=== PATIENT | male | born 1965 | race Two or more races ===

== ENCOUNTER → 2020-01-10 | Emergency (ER) | payer MEDICAID, OTHER ==
[~2020-01-10] VITALS: Ht 172.7 cm; Wt 93.0 kg
[~2020-01-10] MED LIST: FOLIC ACID 1 MG, MULTIPLE VITAMIN 10 ML, MAGNESIUM SULF SDV 50% 8 MEQ, THIAMINE INJ 100... INJ ONE; NALOXONE HCL 1MG/ML 2ML SYRINGE IV ONE; NALOXONE HCL 1MG/ML 2ML SYRINGE ONE; ONDANSETRON HCL 4 MG/2 ML VIAL IV ONE
[2020-01-10 20:13] LABS: Basophils # (auto) 0.1 10 ^3/uL (0-0.2); Basophils % (auto) 0.5 % (0.0-2.0); Eosinophils # (auto) 0.1 10 ^3/uL (0-0.8); Eosinophils % (auto) 0.9 % (0.0-7.0); Hematocrit 45.8 % (41.0-53.0); Hemoglobin 14.3 g/dL (13.5-17.5); Lymphocytes # (auto) 1.6 10 ^3/uL (0.4-5.4); Lymphocytes % (auto) 10.2 % (10.0-50.0); Mean Corpuscular Hemoglobin 29.3 pg (28.0-32.0); Mean Corpuscular Hgb Conc. 31.1 g/dL (32.0-36.0); Mean Corpuscular Volume 94.2 fL (80.0-100.0); Monocytes # (auto) 0.8 10 ^3/uL (0-1.3); Monocytes % (auto) 4.9 % (0.0-12.0); Neutrophils # (auto) 13.2 10 ^3/uL (1.6-8.6); Neutrophils % (auto) 83.5 % (37.0-80.0); Platelet Count (auto) 423 10^3/uL (140-450); Red Blood Cells 4.87 10^6/uL (4.5-5.90); Red Cell Distribution Width 14.1 % (11.8-14.3); White Blood Cell 15.8 10^3/uL (4.4-10.8)
[2020-01-10 20:23] LABS: Albumin 3.8 g/dL (3.4-5.0); Anion Gap 13 (5-15); Blood Urea Nitrogen 22 mg/dL (7-18); Calcium 8.8 mg/dL (8.5-10.1); Carbon Dioxide 17 mmol/L (21-32); Chloride 114 mmol/L (98-107); Glucose 165 mg/dL (74-106); Potassium 4.3 mmol/L (3.5-5.1); Sodium 144 mmol/L (136-145)
[2020-01-10 20:24] LABS: Salicylate 4.4 mg/dL (2.8-20.0)
[2020-01-10 20:25] LABS: Acetaminophen < 2.0 ug/mL (10-30)
[2020-01-10 20:26] LABS: Alanine Aminotransferase 72 U/L (16-61); Aspartate Aminotransferase 44 U/L (15-37); BUN/Creatinine Ratio 15.1; GFR African American 64 mL/min; GFR Non-African American 53 mL/min
[2020-01-10 20:31] LABS: Alkaline Phosphatase 75 U/L (45-117); Bilirubin, Total 0.2 mg/dL (0.2-1.0); Total Protein 7.6 g/dL (6.4-8.2)
[2020-01-11 00:10] LABS: Urine Amorphous Crystal FEW /hpf (None Seen); Urine Bacteria FEW /hpf (None Seen); Urine Blood Negative /uL (Negative); Urine Hyaline Cast MOD /lpf (0 - 2); Urine Mucus FEW (None Seen); Urine Specific Gravity 1.018 (1.001-1.035); Urine WBC 1 /hpf (0 - 3)
[2020-01-11 00:25] LABS: Amphetamine Screen, Urine NEGATIVE (NEGATIVE); Barbiturate Scree,Urine NEGATIVE (NEGATIVE); Benzodiazephine Screen, Urine NEGATIVE (NEGATIVE); Cannabinoid Screen, Urine NEGATIVE (NEGATIVE); Cocaine Screen, Urine POSITIVE (NEGATIVE); Phencyclidine Screen, Urine NEGATIVE (NEGATIVE)
[2020-01-11 00:33] LABS: Opiate Scree,Urine NEGATIVE (NEGATIVE)
[2020-01-11 02:44] VITALS: BP 130/82
== END | disposition home or self-care (01) ==
LOC: ER 18:36 → EDBD 18:36
DX: R41.82 Altered mental status, unspecified (principal); G92 Toxic encephalopathy; F19.10 Other psychoactive substance abuse, uncomplicated
CPT/HCPCS: 36415; 71045; 80053; 80307; 80320; 80329; 81001; 84484; 85025; 96365; 96375; 99285; J2310; J2405; J3411; J3475; J7030; 99291